=== PATIENT | female | born 1945 | race Caucasian/White ===

== ENCOUNTER 2016-09-12 07:06 | Emergency (ER) | payer MEDICARE, BC ==
[2016-09-12 07:19] VITALS: BP 143/82
--- NOTE | 2016-09-12 07:56 | UC ---
Skin Complaint HPI - HPI Summary HPI Summary: skin rash x 5 days + itchy, burning , blistering , rash is on both forearms ? exposure to poison lizette - History of Current Complaint Chief Complaint: UCSkin Time Seen by Provider: 09/12/16 07:08 Stated Complaint: RASH Hx Obtained From: Patient Onset/Duration: Gradual Onset, Lasting Days - 5, Still Present Timing: Constant Onset Severity: Moderate Current Severity: Moderate Pain Intensity: 0 Pain Scale Used: 0-10 Numeric Location: Other - bilateral forearms Character: Swelling, Redness, Painful Aggravating: Showering, Touch Alleviating: Nothing Associated Signs & Symptoms: Positive: Tenderness, Red Streaks. Negative: Nausea, Thirst - Allergy/Home Medications Allergies/Adverse Reactions: Allergies Allergy/AdvReac Type Severity Reaction Status Date / Time Penicillins Allergy Mild Rash Verified 05/16/12 09:13 Sulfa Antibiotics Allergy Mild Rash Verified 05/16/12 09:13 Tetracyclines Allergy Mild Rash Verified 05/16/12 09:13 Ciprofloxacin [From Cipro] AdvReac Intermediate Palpitation Verified 05/16/12 09 :13 s Prednisone AdvReac Intermediate See Comment Verified 05/16/12 09:13 Alcohol AdvReac Mild Difficulty Verified 05/16/12 09:13 Breathing Diclofenac AdvReac Mild Agitation Verified 05/16/12 09:13 Home Medications: Home Medications Calcium Carbonate [Calcium 600] 09/12/16 [History Confirmed 09/12/16] [place]-3 Fatty Acids [Pro Nutrients [place] 3 332.5 mg] 09/12/16 [History] SitaGLIPtin (NF) [Januvia (NF)] 09/12/16 [History] Review of Systems Constitutional: Negative Skin: Rash Eyes: Negative ENT: Negative Respiratory: Negative Cardiovascular: Negative All Other Systems Reviewed And Are Negative: Yes PMH/Surg Hx/FS Hx/Imm Hx Previously Healthy: Yes Cardiovascular History: Hypertension - Surgical History Surgical History: Yes Surgery Procedure, Year, and Place[place] [facility] [place] [facility] [place] [facility] [place] Family History Known Family History: Positive: Hypertension - Social History Alcohol Use: Rare Substance Use Type: None Smoking Status (MU): Never Smoked Tobacco Physical Exam Triage Information Reviewed: Yes Appearance: Well-Appearing, No Pain Distress, Well-Nourished Vital Signs: Initial Vital Signs Temp 97.9 F 09/12/16 07:11 Pulse 79 09/12/16 07:11 Resp 16 09/12/16 07:11 BP 143/82 09/12/16 07:11 Pulse Ox 100 09/12/16 07:11 Vital Signs Reviewed: Yes Eye Exam: Normal Eyes: Positive: Conjunctiva Clear ENT: Positive: Normal ENT inspection, Hearing grossly normal, Pharynx normal Neck: Positive: Supple Respiratory: Positive: Chest non-tender, Lungs clear, No respiratory distress Cardiovascular: Positive: RRR, No Murmur Skin: Positive: rashes - multiple vesicular rash , erythema on both forearms Course/Dx - Diagnoses Provider Diagnoses: contact dermatitis Discharge - Discharge Plan Condition: Stable Disposition: HOME Prescriptions: Triamcinolone 0.1% CREAM(NF) [Kenalog 0.1% Cream (NF)] 1 applic TOPICAL BID #[id number] Patient Education Materials: Contact Dermatitis (ED) Referrals: Yury Bonds MD [Primary Care Provider] - If Needed
== END 2016-09-12 07:52 | disposition home or self-care (01) ==
LOC: UCEAST 07:06
DX: L25.9 Unspecified contact dermatitis, unspecified cause (principal); I10 Essential (primary) hypertension; Z88.1 Allergy status to other antibiotic agents; Z88.0 Allergy status to penicillin; Z88.2 Allergy status to sulfonamides; Z88.8 Allergy status to other drugs, medicaments and biological substances; Z90.49 Acquired absence of other specified parts of digestive tract
CPT/HCPCS: 99212; G0463